=== PATIENT | female | born 1955 | race Caucasian/White ===

== ENCOUNTER 2021-07-31 15:46 | Inpatient (IN) ==
[2021-07-31] MEDS ORDERED: ONDANSETRON 4 MG OD TAB PO STA (16:01)
[2021-07-31] MEDS ORDERED: MoRPHine SULFATE 4 MG/ML 1 ML CARP\\VIAL IM STA (16:01)
--- NOTE | 2021-07-31 16:06 | Emergency Department Note ---
History of Present Illness General Chief complaint: Hip Pain Stated complaint: FALL, LT HIP PAIN Time Seen by Provider: 07/31/21 15:53 History of Present Illness Maximum Pain Intensity: 8 65-year-old female who presents to the emergency department with her friend for evaluation of injuries after she slipped on ice and fell this morning. The patient reports that she was able to get back into her home, with noticeable pain with weightbearing. The patient reports pain radiating from her buttock, around the left side of the hip to the groin region. It also slightly radiates into the thigh. She denies any paresthesias or numbness of the left lower extremity, and also denies any focal discomfort through the lower back. The patient has had difficulty with ambulation, rating her discomfort an 8 out of 10. Home Medications Medication Instructions Recorded Confirmed Type cyclosporine 0.05 % eye drops 1 drops OPB Q12H 11/16/19 07/31/21 History (Restasis MultiDose) meloxicam 15 mg tablet 15 mg PO DAILY PRN 07/31/21 07/31/21 History Allergies Allergy/AdvReac Type Severity Reaction Status Date / Time No Known Allergies Allergy Unverified 07/31/21 17:50 Past Med/Surg History Medical History Basal cell carcinoma nose, 2006 Dry eye Hip pain, left Lyme disease h/o - treated Osteoarthritis Surgical History History of left knee replacement 2014 History of right knee joint replacement 2014 History of tonsillectomy Hx of LASIK S/P D&C (status post dilation and curettage) 1988 S/P hysterectomy 2004 S/P tubal ligation 2000 Status post Mohs surgery 2006 Family History Uncle Myocardial infarction Cancer of neck Other No family history of adverse response to anesthesia Denies family history of Ovarian cancer Prostate cancer Breast cancer Colorectal cancer Social History Smoking Status: Never smoker Second Hand Exposure: No; Do You Dip or Chew Tobacco: No; Tobacco Cessation Education Requested by Patient: No Hx Alcohol Use: No Hx Substance Use: No Preferred Language: Lebanese Communication Ability: Effective Visual Impairment: No Limitations Hearing Ability: Normal Outboard Motor Mechanic Required: No Beliefs That Will Affect Care: None marital status: / Current Living Situation: Alone current occupational status: retired Other Information That Helps Us Care for You: No Feels Safe at Home: Yes Safety Concerns: Feels Safe At This Time during the past year weight has: remained stable Dental Care, Regularly: Yes Physical Activity Frequency: 5-6 Times per Week Seatbelt Use: always Sunscreen Use: Yes Assistive Devices: None Review of Systems 10 system review was performed and was negative except for pertinent positives and negatives as indicated in history of present illness Physical Exam Vital Signs Vital Signs - 24 hr 07/31/21 15:49 07/31/21 18:00 Temperature 37.8 C H Temperature Source Temporal Artery Scan Pulse Rate 108 H Pulse Rate [Right] 82 Pulse Rhythm Regular Pulse Rhythm [Right] Regular Pulse Strength Normal Pulse Strength [Right] Normal Respiratory Rate 20 18 Respiratory Effort / Characteristics Non-Labored Spontaneous Non-Labored Spontaneous Respiratory Depth Normal Normal Respiratory Pattern Regular Blood Pressure 168/89 H Blood Pressure [Right Arm] 120/65 Blood Pressure Mean 115 Blood Pressure Mean [Right Arm] 83 Blood Pressure Position Sitting Blood Pressure Position [Right Arm] Lying Pulse Oximetry 96 95 Oxygen Delivery Method Room Air Room Air Sepsis Recent Fever Within 48 Hours No Sepsis New/Unexplained Change in Mental Status No Sepsis Action Taken by Nursing No Action Required CONSTITUTIONAL: Healthy and well nourished. Alert and oriented X 3. Patient appears in moderate discomfort, and was slowly ambulating from triage to the D pod waiting room. HEENT: Normocephalic, atraumatic. Pupils equal, round and reactive. NECK: Full active range of motion without discomfort. RESPIRATORY: Clear to auscultation bilaterally with no wheezing, crackles, rhonchi or stridor. CARDIOVASCULAR: Regular rate and rhythm with no murmurs, rubs or gallops. GASTROINTESTINAL: Bowel sounds present in all quadrants. MUSCULOSKELETAL: Full range of motion of all joints without discomfort. Examination does not show any focal tenderness to palpation through the lower lumbar spine. Thorough examination of the hip could not be performed in the depart waiting room as the patient was unable to sit on a chair. She has no tenderness to palpation about the left knee. Distal pulses are intact. INTEGUMENTARY: No rash or other significant dermatologic conditions noted. HEMATOLOGIC: No ecchymosis or petechiae. PSYCHIATRIC: Positive affect. NEUROLOGIC: Left leg is sensory intact. Course Course Patient history and physical exam were performed. Nurses notes were reviewed. Vital signs were reviewed, showing an elevated blood pressure 168/89. The patient is also mildly tachycardic and febrile with a temperature of 37.8 C. The patient was administered IM morphine and Zofran ODT for pain. X-rays of the pelvis with left hip is most suggestive of an impacted femoral neck fracture. X-rays were reviewed with several colleagues and my attending physician, Dr. Thomas. Radiologist report was not indicative of fracture. Consultation was placed with Dr. Salgado regarding injuries and x-ray findings. With high suspicion for fracture, [facility]. Additional preoperative labs were ordered, reviewed and were grossly normal other than a mild leukocytosis Portable chest x-ray did not show any concerning intrathoracic findings. ECG was performed, showing a sinus rhythm with APCs and nonspecific ST abnormalities in lateral leads. COVID-19 test was also negative. It is noted that Dr. Salgado did order an MRI of the hip, confirming a subcapital hip fracture. I did order some IV Ativan as the patient was unable to undergo initial MRI imaging with anxiety. Administered Medications Morphine Sulfate (Morphine Sulfate 4 Mg/Ml 1 Ml Carp\Vial) 4 mg IV Q3H PRN PRN Reason: Pain (6,7,8,9,10) Stop: 08/14/21 22:24 Last Admin: 07/31/21 22:42 Dose: 4 mg Documented by: [id number] Discontinued Medications Lorazepam (Ativan) 1 mg in 2 mls @ 2 mls/min IV NOW STA Stop: 07/31/21 20:07 Last Admin: 07/31/21 20:20 Dose: 2 mls/min Documented by: [id number] Morphine Sulfate (Morphine Sulfate 4 Mg/Ml 1 Ml Carp\Vial) 4 mg IM NOW STA Stop: 07/31/21 16:02 Last Admin: 07/31/21 16:14 Dose: 4 mg Documented by: [id number] Morphine Sulfate (Morphine Sulfate 4 Mg/Ml 1 Ml Carp\Vial) 4 mg IV NOW STA Stop: 07/31/21 17:01 Last Admin: 07/31/21 17:18 Dose: 4 mg Documented by: [id number] Ondansetron HCl (Ondansetron 4 Mg Od Tab) 4 mg PO NOW STA Stop: 07/31/21 16:02 Last Admin: 07/31/21 16:14 Dose: 4 mg Documented by: [id number] Medical Decision Making Medical Records Attestation: I reviewed the patient's medical records. Home Medications Current Medication List: was personally reviewed by me Laboratory Data Attestation: I reviewed the patient's lab results. Result diagrams: 07/31/21 17:12 07/31/21 17:12 Lab Results 07/31/21 07/31/21 07/31/21 Range/Units 17:12 17:12 17:12 WBC 12.60 H (4.8-10.8) K/uL RBC 4.87 (4.2-5.4) M/uL Hgb 14.2 (12.0-16.0) g/dL Hct 41.2 (37-47) % MCV 84.6 (80-100) fL MCH 29.2 (25-34) pg MCHC 34.5 (32-36) g/dL RDW Std Deviation 41.2 (36.4-46.3) fL RDW Coeff of John 13.3 (11.5-14.5) % Plt Count 313 (130-400) K/uL MPV 9.8 (7.4-10.4) fL Immature Gran % (Auto) 0.2 % Neut % (Auto) 79.5 % Lymph % (Auto) 14.7 % [place] % (Auto) 5.2 % Eos % (Auto) 0.2 % Baso % (Auto) 0.2 % Neut # (Auto) 10.03 H (1.4-6.5) K/uL Lymph # (Auto) 1.85 (1.2-3.4) K/uL [place] # (Auto) 0.66 H (0.11-0.59) K/uL Eos # (Auto) 0.02 (0-0.5) K/uL Baso # (Auto) 0.02 (0-0.2) K/uL Immature Gran # (Auto) 0.02 (0.00-0.02) K/uL PT 10.2 (9.0-12.0) Seconds INR 1.0 (0.9-1.1) APTT 25.6 (21.0-31.0) Seconds PTT Ratio 1.0 Sodium 138 (136-145) mmol/L Potassium 4.0 (3.5-5.1) mmol/L Chloride 105 (98-107) mmol/L Carbon Dioxide 25 (21-32) mmol/L Anion Gap 8 (3-11) BUN 8 (6-23) mg/dl Creatinine 0.74 (0.6-1.2) mg/dl Est Cr Clr Drug Dosing Not Reportable Est GFR ( Amer) 99.9 ml/min Est GFR (Non-Af Amer) 86.2 ml/min BUN/Creatinine Ratio 10.8 (10-20) Glucose 106 H (70-99(Fasting)) mg/dl Calcium 9.3 (8.5-10.1) mg/dl Total Bilirubin 0.7 (0.2-1.0) mg/dl AST 21 (13-39) U/L ALT 16 (7-52) U/L Alkaline Phosphatase 50 (34-104) U/L Total Protein 7.1 (6.0-8.3) gm/dl Albumin 4.5 (3.4-5.0) gm/dl Globulin 2.6 (2.5-4.0) gm/dl Albumin/Globulin Ratio 1.7 (0.9-2) Urine Color Urine Appearance (Clear) Urine pH (4.5-7.5) Ur Specific [place] (1.000-1.030) Urine Protein (Negative) Urine Glucose (UA) (Negative) Urine Ketones (Negative) Urine Blood (Negative) Urine Nitrite (Negative) Urine Bilirubin (Negative) Urine Urobilinogen (Negative) Ur Leukocyte Esterase (Negative) SARS-CoV-2, RNA, NAAT (NEGATIVE) 07/31/21 07/31/21 Range/Units 18:15 18:15 WBC (4.8-10.8) K/uL RBC (4.2-5.4) M/uL Hgb (12.0-16.0) g/dL Hct (37-47) % MCV (80-100) fL MCH (25-34) pg MCHC (32-36) g/dL RDW Std Deviation (36.4-46.3) fL RDW Coeff of John (11.5-14.5) % Plt Count (130-400) K/uL MPV (7.4-10.4) fL Immature Gran % (Auto) % Neut % (Auto) % Lymph % (Auto) % [place] % (Auto) % Eos % (Auto) % Baso % (Auto) % Neut # (Auto) (1.4-6.5) K/uL Lymph # (Auto) (1.2-3.4) K/uL [place] # (Auto) (0.11-0.59) K/uL Eos # (Auto) (0-0.5) K/uL Baso # (Auto) (0-0.2) K/uL Immature Gran # (Auto) (0.00-0.02) K/uL PT (9.0-12.0) Seconds INR (0.9-1.1) APTT (21.0-31.0) Seconds PTT Ratio Sodium (136-145) mmol/L Potassium (3.5-5.1) mmol/L Chloride (98-107) mmol/L Carbon Dioxide (21-32) mmol/L Anion Gap (3-11) BUN (6-23) mg/dl Creatinine (0.6-1.2) mg/dl Est Cr Clr Drug Dosing Est GFR ( Amer) ml/min Est GFR (Non-Af Amer) ml/min BUN/Creatinine Ratio (10-20) Glucose (70-99(Fasting)) mg/dl Calcium (8.5-10.1) mg/dl Total Bilirubin (0.2-1.0) mg/dl AST (13-39) U/L ALT (7-52) U/L Alkaline Phosphatase (34-104) U/L Total Protein (6.0-8.3) gm/dl Albumin (3.4-5.0) gm/dl Globulin (2.5-4.0) gm/dl Albumin/Globulin Ratio (0.9-2) Urine Color Yellow Urine Appearance Clear (Clear) Urine pH 6.5 (4.5-7.5) Ur Specific [place] 1.004 (1.000-1.030) Urine Protein Negative (Negative) Urine Glucose (UA) Negative (Negative) Urine Ketones Negative (Negative) Urine Blood Negative (Negative) Urine Nitrite Negative (Negative) Urine Bilirubin Negative (Negative) Urine Urobilinogen Negative (Negative) Ur Leukocyte Esterase Negative (Negative) SARS-CoV-2, RNA, NAAT NEGATIVE (NEGATIVE) Imaging Data Attestation: I personally reviewed and interpreted this imaging study as follows: My Impression: My interpretation of pelvis with a left hip x-ray shows an impacted femoral neck fracture. There is a discrepancy with the radiologist report. My interpretation of the portable chest x-ray does not show any consolidations or pneumothorax. A noncontrast MRI of the left hip confirms a subcapital hip fracture. Radiologist reports were also reviewed. Radiologist's Impression: Hip/Pelvis X-Ray 07/31/21 16:01 XR hip LT 2V w pelvis CLINICAL HISTORY: L hip injury from fall TECHNIQUE: 2 views of the left hip and single frontal view of the pelvis were obtained. Comparison: None available at the time of this dictation. FINDINGS: There is no evidence of an acute fracture. The alignment is anatomic. Degenerative changes are seen in the hip joint. No soft tissue abnormality is seen. IMPRESSION: Degenerative changes without evidence of acute abnormality. ACT 112: Negative or not required by law. Electronically signed by: Regulo Santillan M.D. 07/31/2021 5:06 PM Chest X-Ray 07/31/21 16:39 XR chest 1V portable CLINICAL HISTORY: Hip fracture TECHNIQUE: Single frontal radiograph of the chest was obtained. Comparison: Comparison is made to chest 2 views 11/13/2014 FINDINGS: No lines and tubes are seen. The cardiomediastinal silhouette is normal. The lungs are clear. No evidence of pleural effusion or pneumothorax. IMPRESSION: No acute chest disease. ACT 112: Negative or not required by law. Electronically signed by: Regulo Santillan M.D. 07/31/2021 5:06 PM ECG Data Attestation: I personally reviewed and interpreted this ECG as follows: Indication: + other (Preoperative ECG) Rhythm: + normal sinus ECG [place]: + Normal ECG ST segments: + ST depression (Lateral leads) ECG Findings: + PVCs Comparison ECG Date: from (11/13/2014) Change: the following changes noted (New PVCs) Blood Pressure Blood Pressure Findings: Normal blood pressure MDM Narrative Patient presents to the emergency department for evaluation of injuries after a mechanical fall from slipping on ice. X-rays and MRI imaging of the left hip confirms a subcapital hip fracture. No other fractures are noted within the pelvis on x-ray. Denies any other injuries to warrant further trauma work-up. Impression & Plan Subcapital fracture of left hip, Fall due to slipping on ice or snow Discharge Plan Visit Data Chief Complaint: Hip Pain Stated Complaint: FALL, LT HIP PAIN ED Provider: Nelson Thomas ED Midlevel Provider: Vu Polanco Discharge Problem: Subcapital fracture of left hip, Fall due to slipping on ice or snow Patient Disposition: Admitted As Inpatient Discharge Instructions Interventions: ED Discharge Assessment Last Done: 07/31/21 21:51 Discharge Problem: Subcapital fracture of left hip Qualifiers: Encounter type: initial encounter Fracture type: closed Qualified Code(s): S72.012A - Unspecified intracapsular fracture of left femur, initial encounter for closed fracture Fall due to slipping on ice or snow Qualifiers: Encounter type: initial encounter Qualified Code(s): W00.9XXA - Unspecified fall due to ice and snow, initial encounter
[2021-07-31] MEDS ORDERED: MoRPHine SULFATE 4 MG/ML 1 ML CARP\\VIAL IV STA (17:00)
--- NOTE | 2021-07-31 17:07 | XRay Report ---
XR hip LT 2V w pelvis CLINICAL HISTORY: L hip injury from fall TECHNIQUE: 2 views of the left hip and single frontal view of the pelvis were obtained. Comparison: None available at the time of this dictation. FINDINGS: There is no evidence of an acute fracture. The alignment is anatomic. Degenerative changes are seen i n the hip joint. No soft tissue abnormality is seen. IMPRESSION: Degenerative changes without evidence of acute abnormality. ACT 112: Negative or not required by law. Electronically signed by: Regulo Santillan M.D. 07/31/2021 5:06 PM
--- NOTE | 2021-07-31 17:08 | XRay Report ---
XR chest 1V portable CLINICAL HISTORY: Hip fracture TECHNIQUE: Single frontal radiograph of the chest was obtained. Comparison: Comparison is made to chest 2 views 11/13/2014 FINDINGS: No lines and tubes are seen. The cardiomediastinal silhouette is normal. The lungs are clear. No evid ence of pleural effusion or pneumothorax. IMPRESSION: No acute chest disease. ACT 112: Negative or not required by law. Electronically signed by: Regulo Santillan M.D. 07/31/2021 5:06 PM
[2021-07-31 17:34] LABS: Basophils # (auto) 0.02 K/uL (0-0.2); Basophils % (auto) 0.2 %; Eosinophils # (auto) 0.02 K/uL (0-0.5); Eosinophils % (auto) 0.2 %; Hematocrit (blood only) 41.2 % (37-47); Hemoglobin 14.2 g/dL (12.0-16.0); Immature Granulocytes # (auto) 0.02 K/uL (0.00-0.02); Immature Granulocytes % (auto) 0.2 %; Lymphocytes # (auto) 1.85 K/uL (1.2-3.4); Lymphocytes % (auto) 14.7 %; Mean Corpuscular Hemoglobin 29.2 pg (25-34); Mean Corpuscular Hgb Conc 34.5 g/dL (32-36); Mean Corpuscular Volume 84.6 fL (80-100); Mean Platelet Volume 9.8 fL (7.4-10.4); Monocytes # (auto) 0.66 K/uL (0.11-0.59); Monocytes % (auto) 5.2 %; Neutrophils # (auto) 10.03 K/uL (1.4-6.5); Neutrophils % (auto) 79.5 %; Platelet Count 313 K/uL (130-400); RDW Coefficient of Variation 13.3 % (11.5-14.5); RDW Standard Deviation 41.2 fL (36.4-46.3); Red Blood Count 4.87 M/uL (4.2-5.4)
[2021-07-31 17:45] LABS: Partial Thromboplastin Time 25.6 Seconds (21.0-31.0); Prothrombin Time 10.2 Seconds (9.0-12.0)
--- NOTE | 2021-07-31 17:47 | History & Physical Report ---
Date of Service July 31, 2021 Assessment & Plan (1) Hip pain, left: Plan: -Mechanical fall without LOC, patient is HD stable. -L hip/pelvis x-ray read as no acute fracture--> MRI ordered by orthopedics to r/o suspected femoral neck fracture. There is an impacted and minimally displaced subcapital fracture of the left proximal femur with corresponding marrow edema. There is mild surrounding hemorrhage and associated left hip joint effusion/lipohemarthrosis. -Orthopedics consulted, appreciate their recommendations. -Pain management with PRN morphine. -Zofran prn. -Regular diet now. -RCRI 0, 3.9% 30 day risk of , [place], or cardiac arrest. (2) Leukocytosis: Plan: -WBC 12.6 with neut # 10.03 -Without complaints of fever/chills, cough, SOB, abdominal pain, n/v/d, urinary symptoms. No obvious source of infection. CXR and UA wnl. -Continue to monitor, repeat CBC in AM. Plan: -Admit inpatient. -Full code. -SCDs ordered. History of Present Illness Chief Complaint: Left hip pain Primary Care Provider: Amada Smith DO Patient is a 65-year-old female with past medical history of bilateral knee replacement who presents today with left hip pain after a mechanical fall this morning. Patient states she slipped on ice around 8 AM and landed on her left hip. She was able to get up and ambulate back into her home where she continued to ambulate with moderate pain, not requiring any pain medications at time. As the day went on, ambulation became more painful and she decided to come to the ED for further evaluation. Patient reporting left hip pain on the lateral aspect with some radiation down her lateral thigh, sometimes the pain is on her anterior thigh with radiation down to the knee, feels slightly spasmodic and throbbing in nature, but not burning or stabbing. No numbness or tingling, sensation intact. She denies any other injuries sustained in the fall, did not hit her head, neck, back, or any other parts of the body. Denies loss of consciousness, confusion, nausea, vomiting, headache. Only home medication is eyedrops and prn mobic for osteoarthritic joint pain, is not on any blood thinners. L hip and pelvis x-ray revealed no evidence of acute fracture. Alignment is anatomic. Degenerative changes seen at the hip joint. No soft tissue abnormalities seen. Hip MRI ordered. CXR performed, no acute chest disease seen. BP elevated at 168/89, heart rate 108, 96% RA, temp is 37.8. Significant for elevated WBC at 12.6, neutrophil count 10, otherwise unremarkable. Coag panel within normal limits. CMP and UA wnl. Orthopedics has been consulted, hospitalist service consulted for admission. Allergies Allergy/AdvReac Type Severity Reaction Status Date / Time No Known Allergies Allergy Unverified 07/31/21 17:50 Home Medications Medication Instructions Recorded Confirmed Type cyclosporine 0.05 % eye drops 1 drops OPB Q12H 11/16/19 07/31/21 History (Restasis MultiDose) meloxicam 15 mg tablet 15 mg PO DAILY PRN 07/31/21 07/31/21 History Past Med/Surg History Medical History Basal cell carcinoma nose, 2006 Dry eye Hip pain, left Lyme disease h/o - treated Osteoarthritis Surgical History History of left knee replacement 2014 History of right knee joint replacement 2014 History of tonsillectomy Hx of LASIK S/P D&C (status post dilation and curettage) 1987 S/P hysterectomy 2004 S/P tubal ligation 2000 Status post Mohs surgery 2006 Family History Uncle Myocardial infarction Cancer of neck Other No family history of adverse response to anesthesia Denies family history of Ovarian cancer Prostate cancer Breast cancer Colorectal cancer Social History Smoking Status: Never smoker Second Hand Exposure: No; Do You Dip or Chew Tobacco: No; Tobacco Cessation Education Requested by Patient: No Hx Alcohol Use: No Hx Substance Use: No Preferred Language: Telugu Communication Ability: Effective Visual Impairment: No Limitations Hearing Ability: Normal Claims Director Required: No Beliefs That Will Affect Care: None marital status: / Current Living Situation: Alone current occupational status: retired Other Information That Helps Us Care for You: No Feels Safe at Home: Yes Safety Concerns: Feels Safe At This Time during the past year weight has: remained stable Dental Care, Regularly: Yes Physical Activity Frequency: 5-6 Times per Week Seatbelt Use: always Sunscreen Use: Yes Assistive Devices: Walker Review of Systems Review of Systems: Constitutional: No fever, sweats or chills Eyes: No diplopia, no worsening or blurred vision ENT: normal hearing, no trouble swallowing Respiratory: No cough, sputum, dyspnea at rest or on exertion Cardiovascular: No chest pain, tightness or palpitations Abdomen: No pain, nausea, vomiting, diarrhea or constipation Musculoskeletal: Endorses left lateral and anterior hip pain with radiation midway down thigh Neurologic: No weakness, numbness/tingling, or balance problems Psychiatric: No anxiety or depression Skin: No rash or itch Physical Exam Physical Exam: General: awake, alert, no apparent distress Head: Normocephalic, atraumatic ENT: PERRL, EOMI, no pharyngeal exudate, mucous membranes moist Chest: Clear to auscultation, on room air, no adventitious breath sounds Cardiac: Regular rate and rhythm, no murmur, no JVD, normal peripheral pulses, good capillary refill Abdominal: NABS x 4 quadrants, soft, nontender to palpation, no rebound, guarding or tenderness Extremities: LLE--> tender to palpation at the lateral hip joint, passive range of motion limited due to pain; pulses intact bilaterally, sensation intact bilaterally, equal; no internal or external rotation of the left hip; no peripheral edema or erythema, calfs nontender to palpation Psych: Normal mood and affect Neuro: AAO x 3, strength intact bilaterally and rated 5/5, no motor deficits, speech is clear, no peripheral sensory deficits Skin: no rash or erythema Results & Data Results & Data ([facility]) Vital Signs (Past 12 Hours) Vital Signs Temp Pulse Resp BP Pulse Ox 07/31/21 15:49 37.8 C H 108 H 20 168/89 H 96 Laboratory Results Abnormal lab results 07/31/21 07/31/21 Range/Units 17:12 17:12 WBC 12.60 H (4.8-10.8) K/uL Neut # (Auto) 10.03 H (1.4-6.5) K/uL [place] # (Auto) 0.66 H (0.11-0.59) K/uL Glucose 106 H (70-99(Fasting)) mg/dl Diagnostic Findings Hip/Pelvis X-Ray 07/31/21 16:01 XR hip LT 2V w pelvis CLINICAL HISTORY: L hip injury from fall TECHNIQUE: 2 views of the left hip and single frontal view of the pelvis were obtained. Comparison: None available at the time of this dictation. FINDINGS: There is no evidence of an acute fracture. The alignment is anatomic. Degenerative changes are seen in the hip joint. No soft tissue abnormality is seen. IMPRESSION: Degenerative changes without evidence of acute abnormality. ACT 112: Negative or not required by law. Electronically signed by: Regulo Santillan M.D. 07/31/2021 5:06 PM Chest X-Ray 07/31/21 16:39 XR chest 1V portable CLINICAL HISTORY: Hip fracture TECHNIQUE: Single frontal radiograph of the chest was obtained. Comparison: Comparison is made to chest 2 views 11/13/2014 FINDINGS: No lines and tubes are seen. The cardiomediastinal silhouette is normal. The lungs are clear. No evidence of pleural effusion or pneumothorax. IMPRESSION: No acute chest disease. Code Status & VTE Plan Code Status Full code. VTE Prophylaxis Plan VTE Prophylaxis will be ordered: Yes Supervising Physician Co-Signing Physician Notes I have personally evaluated and examined this patient. I agree with assessment and plan of Dex Vu PA-C. PG Care Time/CCT Total # of Minutes Spent Total Time Spent with Patient: Total time spent is greater than 50% in coordination of care (as documented) at patient's floor/unit and/or counseling patient: Coding Level of Care Code 31817 Initial Inpt Care Lvl 2 Diagnoses Leukocytosis D72.829 Hip pain, left M25.552
[2021-07-31 17:56] LABS: Alanine Aminotransferase 16 U/L (7-52); Albumin Globulin Ratio 1.7 (0.9-2); Albumin Level 4.5 gm/dl (3.4-5.0); Alkaline Phosphatase 50 U/L (34-104); Anion Gap 8 (3-11); Aspartate Aminotransferase 21 U/L (13-39); BUN Creatinine Ratio 10.8 (10-20); Bilirubin,Total 0.7 mg/dl (0.2-1.0); Blood Urea Nitrogen 8 mg/dl (6-23); Calcium 9.3 mg/dl (8.5-10.1); Carbon Dioxide 25 mmol/L (21-32); Chloride 105 mmol/L (98-107); Est GFR (African American) 99.9 ml/min; Est GFR (Non-African American) 86.2 ml/min; Globulin 2.6 gm/dl (2.5-4.0); Glucose 106 mg/dl (70-99(Fasting)); Sodium 138 mmol/L (136-145); Total Protein 7.1 gm/dl (6.0-8.3)
[2021-07-31 18:31] LABS: Appearance Urine Clear (Clear); Bilirubin Urine Negative (Negative); Blood Urine Negative (Negative); Color Urine Yellow; Glucose Urine UA Negative (Negative); Ketones Urine Negative (Negative); Leukocyte Esterase Urine Negative (Negative); Nitrite Urine Negative (Negative); Protein Urine Negative (Negative); Specific Gravity Urine 1.004 (1.000-1.030); Urobilinogen Urine Negative (Negative); pH Urine 6.5 (4.5-7.5)
[2021-07-31] MEDS ORDERED: LORazepam 1 MG/2 ML VIAL IV STA (20:06)
--- NOTE | 2021-07-31 20:55 | Magnetic Resonance Report ---
MRI OF THE LEFT HIP WITHOUT IV CONTRAST CLINICAL HISTORY: Fall with left hip pain. COMPARISON STUDY: Radiographs of the left hip dated 07/31/2021. TECHNIQUE: MRI of the left hip is performed utilizing various T1 and T2-weighted sequences in the axi al, sagittal, and coronal planes. IV contrast was not administered for this examination. FINDINGS: There is an impacted and minimally displaced subcapital fracture of the left proximal femur with corresponding marrow edema. There is mild surrounding hemorrhage and associated left hip joint effusion/lipohemarthrosis. No additional fracture is identified involving the right hip or the visual ized pelvis. Moderate to advanced osteoarthritic change is noted in both hips. Mild degenerative aguirre ge is noted in the sacroiliac joints. Lumbosacral spondylosis is partially visualized. No destructive bony lesion is seen. There is generalized atrophy of the regional musculature. The origin of the ham strings tendons appear intact. The bladder is decompressed around a [place] catheter. The uterus is susana gically absent. No adnexal lesion is seen. There is no free fluid in the pelvis. No pelvic sidewall o r inguinal adenopathy is seen. IMPRESSION: Impacted subcapital fracture of the left femur as above. Electronically signed by: Song Spear M.D. 07/31/2021 8:53 PM
[2021-07-31] MEDS ORDERED: ACETAMINOPHEN 325 MG TAB PO PRN (22:25)
[2021-07-31] MEDS ORDERED: POLYETHYLENE (MIRALAX) 17 GM PACK PO PRN (22:25)
[2021-07-31] MEDS ORDERED: NALOXONE HCL 0.4 MG/1 ML VIAL/CARP IV PRN (22:25)
[2021-07-31] MEDS ORDERED: ONDANSETRON INJ 2 MG/ML 2 ML VIAL IV PRN (22:25)
[2021-07-31] MEDS ORDERED: MoRPHine SULFATE 2 MG/ML CARP IV PRN (22:25)
[2021-07-31] MEDS: MoRPHine SULFATE 4 MG/ML 1 ML CARP\\VIAL IV PRN (22:42)
--- NOTE | 2021-07-31 23:50 | Orthopedic Consultation ---
Date of Service July 31, 2021 Assessment & Plan (1) Subcapital fracture of left hip: 65-year-old female with some arthrosis and a new subcapital femoral neck fracture with impaction in the left hip. This will need surgical stabilization and consideration of a total hip replacement. We will defer surgical decision to partners due to hip arthroplasty. They will evaluate today for percutaneous screw fixation or total hip arthroplasty. She is on the OR schedule today. Please keep her n.p.o. History of Present Illness Reason for Consultation: left hip pain after fall Requesting Physician: . Attending Physician: Rudi Lozoya MD 65-year-old pleasant and active female with a history of bilateral knee replacements sustained fall yesterday onto her left hip. She is on immediate pain and progressive difficulty weightbearing. She went to the emergency room for evaluation. Allergies Allergy/AdvReac Type Severity Reaction Status Date / Time No Known Allergies Allergy Unverified 07/31/21 17:50 Home Medications Medication Instructions Recorded Confirmed Type cyclosporine 0.05 % eye drops 1 drops OPB Q12H 11/16/19 07/31/21 History (Restasis MultiDose) meloxicam 15 mg tablet 15 mg PO DAILY PRN 07/31/21 07/31/21 History Past Med/Surg History Medical History Basal cell carcinoma nose, 2006 Dry eye Hip pain, left Lyme disease h/o - treated Osteoarthritis Surgical History History of left knee replacement 2014 History of right knee joint replacement 2014 History of tonsillectomy Hx of LASIK S/P D&C (status post dilation and curettage) 1987 S/P hysterectomy 2004 S/P tubal ligation 2000 Status post Mohs surgery 2005 Family History Uncle Myocardial infarction Cancer of neck Other No family history of adverse response to anesthesia Denies family history of Ovarian cancer Prostate cancer Breast cancer Colorectal cancer Social History Smoking Status: Never smoker Second Hand Exposure: No; Do You Dip or Chew Tobacco: No; Tobacco Cessation Education Requested by Patient: No Hx Alcohol Use: No Hx Substance Use: No Preferred Language: Citizen Of [place] Communication Ability: Effective Visual Impairment: No Limitations Hearing Ability: Normal Finance Lecturer Required: No Beliefs That Will Affect Care: None marital status: / Current Living Situation: Alone current occupational status: retired Other Information That Helps Us Care for You: No Feels Safe at Home: Yes Safety Concerns: Feels Safe At This Time during the past year weight has: remained stable Dental Care, Regularly: Yes Physical Activity Frequency: 5-6 Times per Week Seatbelt Use: always Sunscreen Use: Yes Assistive Devices: None Review of Systems All systems reviewed & are unremarkable except as noted in HPI & below. Physical Exam Left hip: She is lying comfortably with a pillow under both knees. She directs that the pain is medial and lateral. She is irritable with logroll. Constitutional well developed and well nourished; no acute distress and not intoxicated appearing Respiratory normal respiratory effort; no respiratory distress Cardiovascular Extremities: normal capillary refill; no edema Skin no rashes, warm and dry Psychiatric A+Ox3, euthymic affect Results & Data Results & Data Laboratory Results . Diagnostic Findings Radiographs and advanced imaging with MRI confirmed that there is a impacted femoral neck fracture. There is some arthrosis in the joint. I will defer these images to my partners to perform hip replacement surgery. PG Care Time/CCT Total # of Minutes Spent Total Time Spent with Patient: Total time spent is greater than 50% in coordination of care (as documented) at patient's floor/unit and/or counseling patient: Coding Level of Care Code 86159 Inpt Consult Level 4 Diagnoses Subcapital fracture of left hip S72.012A Encounter type: initial encounter Fracture type: closed (1) Subcapital fracture of left hip Encounter type: initial encounter Fracture type: closed Qualified Code(s): S72.012A - Unspecified intracapsular fracture of left femur, initial encounter for closed fracture
[2021-08-01] MEDS: MoRPHine SULFATE 4 MG/ML 1 ML CARP\\VIAL IV PRN ×2 (02:59→08:03)
[2021-08-01] MEDS ORDERED: MELATONIN 3 MG TAB PO PRN (08:12)
[2021-08-01] MEDS ORDERED: SODIUM CHLORIDE 0.9% 1000ML 1,000 ML IV SCH (08:25)
[2021-08-01] MEDS ORDERED: ACETAMINOPHEN 325 MG TAB PO PRN (08:25)
[2021-08-01] MEDS ORDERED: ACETAMINOPHEN 1,000 MG/100 ML VIAL IV PRN (08:25)
[2021-08-01 08:47] LABS: Basophils # (auto) 0.02 K/uL (0-0.2); Basophils % (auto) 0.3 %; Eosinophils # (auto) 0.15 K/uL (0-0.5); Eosinophils % (auto) 1.9 %; Hematocrit (blood only) 41.2 % (37-47); Immature Granulocytes # (auto) 0.01 K/uL (0.00-0.02); Immature Granulocytes % (auto) 0.1 %; Lymphocytes # (auto) 2.32 K/uL (1.2-3.4); Lymphocytes % (auto) 29.7 %; Mean Corpuscular Volume 85.5 fL (80-100); Mean Platelet Volume 9.5 fL (7.4-10.4); Monocytes # (auto) 0.69 K/uL (0.11-0.59); Monocytes % (auto) 8.8 %; Neutrophils # (auto) 4.62 K/uL (1.4-6.5); Neutrophils % (auto) 59.2 %; Platelet Count 279 K/uL (130-400); RDW Coefficient of Variation 13.7 % (11.5-14.5); RDW Standard Deviation 42.7 fL (36.4-46.3); Red Blood Count 4.82 M/uL (4.2-5.4); White Blood Count 7.81 K/uL (4.8-10.8)
--- NOTE | 2021-08-01 08:47 | Hospitalist Progress Note ---
Date of Service August 01, 2021 Assessment & Plan (1) Subcapital fracture of left hip: Plan: 65-year-old female with new left subcapital femoral neck fracture with impaction in the left hip from a mechanical fall. - L hip/pelvis x-ray read as no acute fracture - L hip MRI showing an impacted and minimally displaced subcapital fracture of the left proximal femur with corresponding marrow edema - Orthopedics consult --> patient taken to OR by Dr. Dela Cruz for left total hip arthroplasty - Pain management with PRN Tylenol (mild to moderate pain) morphine (severe pain) - will check vitamin D level given new fracture - Recommend DEXA scan as outpatient. Leukocytosis: - WBC 12.6 on admission - CXR and UA normal. No evidence of cellulitis on exam or diarrhea per history - covid 19 negative on admission - Continue to monitor, repeat CBC in AM. Diet: NPO until procedure with mIVF DVT ppx: per orthopedic surgery Code: Full Dispo: Med/surg Admission and Anticipated Discharge Date Admission Date: July 31, 2021 Supervising Physician Co-Signing Physician Notes I personally examined the patient and verified all zamudio points of history and exam, discussed case, and agree with decision making with Dr Hurley feeling OK post op pain ok breathign ok vitals noted nad heent nc at mmm breathing unlabored no accessory muscles good effot skin no rashes no pallor or ictersu neuro no focal deficits hip fx -post op -pain controlled -PT/OT -outpt bone FIELDS [place] w/u DVT proph - asa bid Subjective no acute events overnight. Doing well, pain well controlled with morphine. Review of Systems Review of Systems: All systems reviewed & are unremarkable except as noted in HPI & below Physical Exam Constitutional: WD/WN, vitals as above no acute distress Eyes: + anicteric sclerae ENMT: external ear and nose normal, oropharynx normal Neck: trachea midline Respiratory: normal respiratory effort, lungs clear to auscultation Cardiovascular: RRR, no murmur, no edema Heart Sounds: normal S1 and normal S2 Gastrointestinal (Abdomen): normal bowel sounds, soft, nontender, no hepatosplenomegaly Musculoskeletal: Head/Neck/Chest: normocephalic and head atraumatic Hip: + joint line tenderness (left hip) left lower extremity is neurovascularly intact Skin: no rashes, warm and dry Neurologic: moves all extremities Psychiatric: A+Ox3, euthymic affect Results & Data Results & Data ([facility]) Vital Signs (Past 12 Hours) Vital Signs Temp Pulse Resp BP Pulse Ox 08/01/21 07:20 36.8 C 74 14 111/74 94 07/31/21 22:00 36.9 C 85 18 118/76 94 07/31/21 21:27 88 18 113/78 95 Resident Activity Tracking Resident Involvement: Resident Care Provided Care Provided: Adult Hospital Medicine (1) Subcapital fracture of left hip Encounter type: initial encounter Fracture type: closed Qualified Code(s): S72.012A - Unspecified intracapsular fracture of left femur, initial encounter for closed fracture
[2021-08-01 09:17] LABS: BUN Creatinine Ratio 11.8 (10-20); Calcium 9.1 mg/dl (8.5-10.1); Creatinine Clr Calc Pharmacy 68.2 ml/min; Est GFR (African American) 96.8 ml/min; Est GFR (Non-African American) 83.5 ml/min; Potassium 3.8 mmol/L (3.5-5.1)
--- NOTE | 2021-08-01 10:27 | Orthopedic Consultation ---
Date of Service August 01, 2021 Assessment & Plan (1) Subcapital fracture of left hip: Time was spent with her at bedside describing the diagnosis and possible treatment options. At this point, given her arthritis, I recommended a left total hip arthroplasty. She understands the risk benefits alternatives procedure elected proceed question were answered at bedside and consents were signed. Time was spent scribed procedure and postop expectations. She is currently n.p.o. We will proceed with the procedure later this afternoon. History of Present Illness Reason for Consultation: Left femoral neck fracture Requesting Physician: . Attending Physician: Paco Ames DO Marshall is a pleasant 65-year-old female who slipped on the black ice yesterday. She fell onto her left hip. She was having significant left hip pain. She came to the emergency room and radiographs demonstrated a valgus impacted left femoral neck fracture. She also has advanced arthritis of her left hip. She has seen surgeons before about possible hip replacement but has not gone through with it to this point. She has been living with chronic hip pain. She was admitted to the hospital for the left hip fracture. Orthopedics was consulted to evaluate and treat. Allergies Allergy/AdvReac Type Severity Reaction Status Date / Time No Known Allergies Allergy Unverified 07/31/21 17:50 Home Medications Medication Instructions Recorded Confirmed Type cyclosporine 0.05 % eye drops 1 drops OPB Q12H 11/16/19 07/31/21 History (Restasis MultiDose) meloxicam 15 mg tablet 15 mg PO DAILY PRN 07/31/21 07/31/21 History Past Med/Surg History Medical History Basal cell carcinoma nose, 2006 Dry eye Hip pain, left Lyme disease h/o - treated Osteoarthritis Surgical History History of left knee replacement 2014 History of right knee joint replacement 2014 History of tonsillectomy Hx of LASIK S/P D&C (status post dilation and curettage) 1988 S/P hysterectomy 2004 S/P tubal ligation 2000 Status post Mohs surgery 2006 Family History Uncle Myocardial infarction Cancer of neck Other No family history of adverse response to anesthesia Denies family history of Ovarian cancer Prostate cancer Breast cancer Colorectal cancer Social History Smoking Status: Never smoker Second Hand Exposure: No; Do You Dip or Chew Tobacco: No; Tobacco Cessation Education Requested by Patient: No Hx Alcohol Use: No Hx Substance Use: No Preferred Language: [place]ian Communication Ability: Effective Visual Impairment: No Limitations Hearing Ability: Normal Racing Car Driver Required: No Beliefs That Will Affect Care: None marital status: / Current Living Situation: Alone current occupational status: retired Other Information That Helps Us Care for You: No Feels Safe at Home: Yes Safety Concerns: Feels Safe At This Time during the past year weight has: remained stable Dental Care, Regularly: Yes Physical Activity Frequency: 5-6 Times per Week Seatbelt Use: always Sunscreen Use: Yes Assistive Devices: Walker Review of Systems All systems reviewed & are unremarkable except as noted in HPI & below. Physical Exam On physical examination of the left hip, she has pain with range of motion. Her leg lengths are essentially equal. Constitutional WD/WN, vitals as above Eyes PERRL, conjunctivae normal, anicteric sclerae ENMT external ear and nose normal, oropharynx normal Neck trachea midline, no thyromegaly Respiratory normal respiratory effort Cardiovascular RRR, no murmur, no edema Gastrointestinal (Abdomen) normal bowel sounds, soft, nontender, no hepatosplenomegaly Psychiatric A+Ox3, euthymic affect Results & Data Results & Data Laboratory Results . Diagnostic Findings X-rays of the left hip do show advanced osteoarthritis with joint space narrowing osteophyte formation and [id number] articulation. There is also valgus impacted left femoral neck fracture PG Care Time/CCT Total # of Minutes Spent Total Time Spent with Patient: Total time spent is greater than 50% in coordination of care (as documented) at patient's floor/unit and/or counseling patient: Coding Level of Care Code 70729 Inpt Consult Level 4 (57 - DECISION FOR SURGERY) Diagnoses Subcapital fracture of left hip S72.012A Encounter type: initial encounter Fracture type: closed (1) Subcapital fracture of left hip Encounter type: initial encounter Fracture type: closed Qualified Code(s): S72.012A - Unspecified intracapsular fracture of left femur, initial encounter for closed fracture
[2021-08-01] MEDS ORDERED: ePHEDrine sulfate 50 MG/ML AMP IV PRN (11:31)
[2021-08-01] MEDS ORDERED: ONDANSETRON INJ 2 MG/ML 2 ML VIAL IV PRN ×2 (11:31→15:08)
[2021-08-01] MEDS ORDERED: HYDROmorphone INJ 2 MG/ML SYR/VIAL IV PRN (11:31)
[2021-08-01] MEDS ORDERED: ATROPINE SULFATE 0.1 MG/ML 10ML SYR IV PRN (11:31)
--- NOTE | 2021-08-01 11:31 | Anesthesiology Consultation ---
Date of Service August 01, 2021 Assessment & Plan ASA ASA2 Proposed Anesthesia Anesthesia Type: General Risk / Benefits Reviewed With: PT / POA / Parent / Guardian, Accepts Plan and Informed Consent Obtained History Surgery Operation Date: 08/01/21 08:35 Proposed Procedures p Left Anterior Total Hip Arthroplasty - Salomon Dela Cruz DO Height/Weight Height: 5 ft 5 in Weight: 65 kg Allergies Allergy/AdvReac Type Severity Reaction Status Date / Time No Known Allergies Allergy Unverified 07/31/21 17:50 Medications Home Medications Medication Instructions Recorded Confirmed Last Taken cyclosporine 0.05 % eye drops 1 drops OPB Q12H 11/16/19 07/31/21 07/31/21 (Restasis MultiDose) am meloxicam 15 mg tablet 15 mg PO DAILY PRN 07/31/21 07/31/21 Unknown Active Medications Generic Name Dose Route Start Last Admin Trade Name Freq PRN Reason Stop Dose Admin Sodium Chloride 1,000 mls @ 120 mls/hr 08/01/21 08:25 08/01/21 10:57 Nss 1000ml IV 08/02/21 01:04 0 mls/hr .[id number] NICA Infusion Miscellaneous 1 ea 08/01/21 08:00 08/01/21 07:00 Cyclosporine [Restasis]: Order Awaiting Action N/A 08/31/21 07:59 Not Given QS NICA Morphine Sulfate 4 mg 07/31/21 22:25 08/01/21 08:03 Morphine Sulfate 4 Mg/Ml 1 Ml Carp\Vial IV 08/14/21 22:24 4 mg Q3H PRN Administration Pain (6,7,8,9,10) NPO Date Last Intake of Fluids: 07/31/21 Time Last Intake of Fluids: 23:00 Last Intake of Fluids Comment: 0600 sip of water Date Last Intake of Solids: 07/31/21 Time Last Intake of Solids: 23:00 Past Medical History Medical History Basal cell carcinoma nose, 2006 Dry eye Hip pain, left Lyme disease h/o - treated Osteoarthritis Exercise / Class Metabolic Activity II 4-5 Yardwork/Stairs/Walk up hill Past Family History Family History Uncle Myocardial infarction Cancer of neck Other No family history of adverse response to anesthesia Denies family history of Ovarian cancer Prostate cancer Breast cancer Colorectal cancer Past Surgical History Surgical History History of left knee replacement 2014 History of right knee joint replacement 2014 History of tonsillectomy Hx of LASIK S/P D&C (status post dilation and curettage) 1988 S/P hysterectomy 2004 S/P tubal ligation 2000 Status post Mohs surgery 2006 Past Anesthesia History No Hx of Anesthesia Complications and No Family Hx of Anesthesia Complications History of PONV No Hx of PONV and No Hx of Motion Sickness Social History Smoking Status: Never smoker Do You Dip or Chew Tobacco: No Hx Alcohol Use: No Hx Substance Use: No substance use type: does not use Review of Systems denies fever/cough/ colds/ chest pain/ SOB/ GUANACO denies GUANACO Physical Exam Vital Signs Last Vital Signs Temp 37 C 08/01/21 11:23 Pulse 78 08/01/21 11:23 Resp 20 08/01/21 11:23 BP 116/65 08/01/21 11:23 Pulse Ox 93 08/01/21 11:23 ENMT Mouth: no TMJ abnormality and no dentition abnormality Thyromental Distance: > or= 3.5 Finger Breadths Mallampati Class: II Neck neck extension not limited Respiratory normal respiratory effort; no respiratory distress Auscultation: lungs clear to auscultation bilaterally Cardiovascular Rate/Rhythm: regular rate and regular rhythm Neurologic moves all extremities Psychiatric Orientation: alert and oriented x 3 Testing Laboratory Results 08/01/21 08:25 08/01/21 08:25 PT 10.2 Seconds (9.0-12.0) 07/31/21 17:12 INR 1.0 (0.9-1.1) 07/31/21 17:12 APTT 25.6 Seconds (21.0-31.0) 07/31/21 17:12 Urine Color Yellow 07/31/21 18:15 Urine Appearance Clear (Clear) 07/31/21 18:15 Urine pH 6.5 (4.5-7.5) 07/31/21 18:15 Ur Specific [place] 1.004 (1.000-1.030) 07/31/21 18:15 Urine Protein Negative (Negative) 07/31/21 18:15 Urine Glucose (UA) Negative (Negative) 07/31/21 18:15 Urine Ketones Negative (Negative) 07/31/21 18:15 Urine Nitrite Negative (Negative) 07/31/21 18:15 Ur Leukocyte Esterase Negative (Negative) 07/31/21 18:15
[2021-08-01] MEDS ORDERED: LACTATED RINGER'S 1,000 ML IV SCH (11:45)
[2021-08-01] MEDS ORDERED: ceFAZolin 2000MG 2,000 MG/15 ML SYR IV ONE (12:10)
--- NOTE | 2021-08-01 12:13 | History & Physical Bridge Note ---
Date of Service August 01, 2021 History & Physical Bridge Note I have examined the patient, reviewed the History & Physical and in the interval since the performance of the History & Physical I have noted the following changes of clinical significance: no changes noted
[2021-08-01] MEDS ORDERED: ceFAZolin 2,000 MG/15 ML IV PUSH IV ONE (12:14)
[2021-08-01] MEDS ORDERED: DEXAMETHASONE SOD INJ 4 MG/ML VIAL ONE (12:29)
[2021-08-01] MEDS ORDERED: MIDAZOLAM HCL 1 MG/ML 2ML VIAL ONE (12:29)
[2021-08-01] MEDS ORDERED: GLYCOPYRROLATE 0.2 MG/ML VIAL ONE (12:29)
[2021-08-01] MEDS ORDERED: ONDANSETRON INJ 2 MG/ML 2 ML VIAL ONE (12:29)
[2021-08-01] MEDS ORDERED: PROPOFOL IV EMULSION 10 MG/ML 20 ML VIAL IV ONE (12:29)
[2021-08-01] MEDS ORDERED: LIDOCAINE 2% 2 ML VIAL/AMP(20MG/ML) INFIL ONE (12:29)
[2021-08-01] MEDS ORDERED: NEOSTIGMINE METHYLSULFATE 1 MG/ML 10ML VIAL ONE (12:29)
[2021-08-01] MEDS ORDERED: fentaNYL citrate 100 MCG/2 ML VIAL ONE (12:30)
[2021-08-01] MEDS ORDERED: Ketorolac (*for OR use only*) 30 MG, dexAMETHasone 4 MG, KETAMINE HCL (**OR use only) 1... INFIL SCH (13:00)
[2021-08-01] MEDS ORDERED: ROCURONIUM BROMIDE 10 MG/ML 5 ML VIAL IV ONE (13:47)
--- NOTE | 2021-08-01 14:03 | Operative Report ---
PG Post Operative Report Pre & Post Diagnosis Operation Date: 08/01/21 08:35 Pre-Op Diagnosis: Subcapital fracture of left hip Post-Op Diagnosis: Subcapital fracture of left hip I identified the patient and participated in the time-out.: Yes Procedure Operation Date: 08/01/21 08:35 Actual Procedures p Left Anterior Total Hip Arthroplasty, Uncemented(Left) - Salomon Dela Cruz DO Surgeon Salomon Dela Cruz DO Caser In Salomon Cox PAC Estimated Blood Loss 200 Findings Consistent with Post-Op Diagnosis Specimens Left femoral head Complications none Disposition Disposition: Recovery Room Indications Marshall is a pleasant 65-year-old female who slipped and fell on black ice yesterday. She sustained a nondisplaced subcapital fracture of her left hip. X-ray showed advanced osteoarthritis. After discussions, she elected proceed with a left total hip arthroplasty. Description of Procedure Implants used I used a [employer]immer[employer] total hip arthroplasty system with a size 5 standard Avenir Complete stem, a 50 mm G7 cup with a 25mm screw, an E1 polyethylene liner, a 36 mm ceramic head with a 0 neck. The arrived at the hospital for the above procedure. She was seen in the preoperative holding area and the operative extremity was identified and signed. She was given a spinal anesthetic, a preoperative antibiotic, and TXA. She was then taken back to the operating room and laid on the table in the supine position. She was given basic sedation. The operative leg was secured to a Puristst leg positioner. The hip was then prepped and draped in sterile fashion. A timeout was done and the patient and the operative extremity was properly identified. An anterior approach was used. Dissection was taken down through the fascia and the tensor muscle belly was retracted laterally and the rectus was retracted medially. The circumflex vessels were identified and ligated. The capsule was then incised and tagged for later repair. The femoral neck was then cut and the femoral head was removed. The acetabulum was exposed. Time was spent doing a complete circumferential labral release. Sequential reaming of the acetabulum up to a size 49 reamer was done. Final reamings were done under fluoroscopy to ensure appropriate version. A Biomet 50mm G7 cup was then impacted into place. A single 25 mm screw was placed. The E1 polyethylene liner was then snapped into place. Surrounding soft tissues were then injected with 100 cc of an orthopedic pain control cocktail. The proximal femur was then exposed. Sequential broaching up to a size 5 broach was done. Off that broach a size 36 head with a 0 neck was trialed. The hip was reduced and fluoroscopic images showed anatomic alignment of the implants in acceptable length. The broach was removed. The final size [address] em was then impacted into place. A ceramic 36mm head with a 0 neck was then impacted onto the stem and the hip was reduced. Final fluoroscopic images showed anatomic alignment of the hip. The capsule was then closed with #1 Vicryl suture. A dilute betadyne lavage was then done for 3 minutes. The joint was then irrigated with normal saline solution. The fascia was closed with #1 PDS suture. Skin was closed with 2-0 Vicryl, shawn, and a Silverlon dressing. She was then transferred to a hospital bed and taken to the post anesthesia care unit in stable condition. She tolerated the procedure well. Salomon Cox PA-C, was present for the entire procedure. He was critical for patient positioning, prepping, draping, retraction exposure, wound closure and application of sterile dressing. I attest to the content of the Intraoperative Record and any orders documented therein. Any exceptions are noted below.
[2021-08-01] MEDS ORDERED: ePHEDrine sulfate 50 MG/ML AMP ONE (14:06)
[2021-08-01] MEDS: fentaNYL citrate 100 MCG/2 ML VIAL IV PRN ×2 (14:32→14:37)
--- NOTE | 2021-08-01 14:49 | Anesthesiology Progress Note ---
Date of Service August 01, 2021 Anesthesia Post Procedure Vital Signs Vital Signs: Temp Pulse Pulse Pulse Resp BP BP 08/01/21 14:35 61 16 106/62 08/01/21 14:27 36.8 C 84 16 118/61 08/01/21 11:23 37 C 78 20 116/65 08/01/21 07:20 36.8 C 74 14 111/74 07/31/21 22:00 36.9 C 85 18 118/76 07/31/21 21:27 88 18 113/78 07/31/21 18:00 82 18 120/65 07/31/21 15:49 37.8 C H 108 H 20 168/89 H Pulse Ox 08/01/21 14:35 98 08/01/21 14:27 98 08/01/21 11:23 93 08/01/21 07:20 94 07/31/21 22:00 94 07/31/21 21:27 95 07/31/21 18:00 95 07/31/21 15:49 96 Pain Intensity Left Hip: Pain Intensity: 6 Left Knee: Pain Intensity: 7 Transfer of Care Handoff Completed per policy Notes Mental Status: alert / awake / arousable Patient Amnestic to Procedure: Yes Nausea / Vomiting: adequately controlled Pain: adequately controlled Airway Patency, RR, SpO2: stable & adequate BP & HR: stable & adequate Hydration State: stable & adequate Anesthetic Complications: no major complications apparent
--- NOTE | 2021-08-01 15:02 | Fluoroscopy Report ---
INTRAOPERATIVE RADIOGRAPHS CLINICAL HISTORY: Left hip arthroplasty. Fluoroscopy time: 25 seconds. FINDINGS: 2 spot fluoroscopic views of the left hip from an arthroplasty procedure are compared to ra diographs dated 07/31/2021. The initial image shows surgical absence of the femoral head within the ac etabular cup in place. A single cortical lag screw transfixes the acetabular cup. The second image sh ows a left hip arthroplasty in near anatomic alignment. There is no evidence of acute fracture on the se fluoroscopic views. IMPRESSION: Intraoperative images from a left hip arthroplasty procedures above. Electronically signed by: Song Spear M.D. 08/01/2021 3:01 PM
[2021-08-01] MEDS ORDERED: METOCLOPRAMIDE HCL INJ 5 MG/ML 2 ML VIAL IV PRN (15:08)
[2021-08-01] MEDS ORDERED: bisacodyL 10 MG SUPP PR PRN (15:08)
[2021-08-01] MEDS ORDERED: oxyCODONE HCL IR 5 MG TAB (IMMEDIATE RELEASE) PO PRN (15:08)
[2021-08-01] MEDS ORDERED: NALOXONE HCL 0.4 MG/1 ML VIAL/CARP IV PRN (15:08)
[2021-08-01] MEDS ORDERED: HYDROmorphone INJ 0.5 MG/0.5 ML SYR IV PRN (15:08)
[2021-08-01] MEDS ORDERED: MAGNESIUM HYDROXIDE SUSP 30 ML UDC PO PRN (15:08)
[2021-08-01] MEDS: SODIUM CHLORIDE 0.9% 1000ML 1,000 ML IV SCH ×2 (15:15→23:24)
--- NOTE | 2021-08-01 15:24 | Electrocardiogram Report ---
Test Reason : Blood Pressure : / mmHG Vent. Rate : 083 BPM Atrial Rate : 083 BPM P-R Int : 142 ms QRS Dur : 068 ms QT Int : 372 ms P-R-T Axes : 076 046 053 degrees QTc Int : 437 ms Poor data quality, interpretation may be adversely affected Sinus rhythm with occasional Premature ventricular complexes Nonspecific ST abnormality Abnormal ECG When compared with ECG of 13-NOV-2014 12:00, Premature ventricular complexes are now Present Confirmed by Jose Flores ([id number]) on 08/01/2021 3:23:56 PM Referred By: REFERRED SELF Confirmed By:Jose Flores
--- NOTE | 2021-08-01 16:31 | XRay Report ---
XR hip 1V LT w pelvis HISTORY: 65 years-old Female IN PACU - A/P PELVIS and LATERAL HIP left hip total joint arthroplasty COMPARISON: MRI left hip 07/31/2021 TECHNIQUE: AP view of the pelvis with crosstable lateral view of the left hip FINDINGS: Left hip total joint arthroplasty. Lateral skin shawn are noted with expected postoperative soft ti ssue swelling and deep tissue air. Satisfactory alignment. No unexpected opaque foreign body. Pelvic basin phleboliths. IMPRESSION: Left hip total joint arthroplasty with expected postoperative changes. ACT 112: Negative or not required by law. The above report was generated using voice recognition software. It may contain grammatical, syntax o r spelling errors. Electronically signed by: Dennis Harrison M.D. 08/01/2021 4:30 PM
--- NOTE | 2021-08-01 17:54 | Billing Data ---
Date of Service August 01, 2021 Coding Level of Care Code 41005 Subseq Hosp Care Lvl 3
[2021-08-01] MEDS: KETOROLAC 30 MG/ML VIAL IV SCH ×2 (18:30→23:25)
[2021-08-01] MEDS: ceFAZolin 2000MG 2,000 MG/15 ML SYR IV SCH (20:21)
[2021-08-01] MEDS: SENNA 8.6 MG TAB PO SCH (20:22)
[2021-08-01] MEDS: ASPIRIN 81 MG ECTAB PO SCH (20:22)
[2021-08-01] MEDS: DOCUSATE SODIUM 100 MG CAP PO SCH (20:22)
[2021-08-01] MEDS: ACETAMINOPHEN 500 MG TAB PO SCH (21:52)
[2021-08-02] MEDS: ceFAZolin 2000MG 2,000 MG/15 ML SYR IV SCH (05:02)
[2021-08-02] MEDS: ACETAMINOPHEN 500 MG TAB PO SCH ×3 (05:02→22:54)
[2021-08-02] MEDS: KETOROLAC 30 MG/ML VIAL IV SCH ×3 (05:03→18:09)
--- NOTE | 2021-08-02 07:15 | Orthopedic Progress Note ---
Date of Service August 02, 2021 Assessment & Plan (1) Status post left hip replacement: Overall she is doing fairly well. Is not any much pain in the left hip. She will be seen by physical therapy today for ambulation and range of motion exercises. She is on aspirin 81 mg twice a day for DVT prophylaxis. She will need to be on that for 6 weeks. She is orthopedically stable for discharge when medically ready. Full orthopedic discharge instructions were placed in the discharge summary. She can follow-up with orthopedics in 2 weeks. Bunny Olivares was seen and examined at bedside this morning. Overall she is doing very well. She is not having much pain in the right hip. She has not been up yet with the nursing staff. She has no complaints. Review of Systems All systems reviewed & are unremarkable except as noted in HPI & below. Physical Exam On physical examination of the left hip, the dressing is clean and dry. Her leg lengths are equal. She has active dorsiflexion plantarflexion of her left ankle.. Results & Data Results & Data Laboratory Results . Diagnostic Findings Postoperative x-rays of the left hip show the prosthesis to be in anatomic alignment without any evidence of fracture, desiccation, or loosening. PG Care Time/CCT Total # of Minutes Spent Total Time Spent with Patient: Total time spent is greater than 50% in coordination of care (as documented) at patient's floor/unit and/or counseling patient: Coding Level of Care Code 95136 Post Operative Follow-Up Diagnoses Status post left hip replacement Z96.642
[2021-08-02] MEDS ORDERED: dexAMETHasone 4 MG TAB PO SCH (08:00)
[2021-08-02] MEDS: MULTIVITAMIN TAB PO SCH (09:08)
[2021-08-02] MEDS: ASPIRIN 81 MG ECTAB PO SCH ×2 (09:09→20:09)
[2021-08-02] MEDS: DOCUSATE SODIUM 100 MG CAP PO SCH ×2 (09:09→20:09)
--- NOTE | 2021-08-02 09:49 | Hospitalist Progress Note ---
Date of Service August 02, 2021 Assessment & Plan (1) Subcapital fracture of left hip: Plan: 65-year-old female with new left subcapital femoral neck fracture with impaction in the left hip from a mechanical fall, now status post total hip arthroplasty. - L hip/pelvis x-ray read as no acute fracture on admission - L hip MRI showing an impacted and minimally displaced subcapital fracture of the left proximal femur with corresponding marrow edema - L total hip arthroplasty done on 08/01/21, currently POD 1. Surgery without complications. - Pain management with scheduled Tylenol and toradol, morphine PRN (for severe pain) - PT/OT evals today - vitamin D level technically normal at 30, but ideally would be > 50. Will add PO supplement 1000mcg qam - Recommend DEXA scan as outpatient. Leukocytosis:resolved - WBC 12.6 on admission --> normalized today - CXR and UA normal. No evidence of cellulitis on exam or diarrhea per history - covid 19 negative on admission Diet: Regular DVT ppx: SCDs, ASA 81mg daily, per ortho Code: Full Dispo: Med/surg; PT/OT ordered --> dispo pending evals (may be stable enough to go straight home with outpatient PT vs. additional day in hospital to recover from surgery vs. placement) Admission and Anticipated Discharge Date Admission Date: July 31, 2021 Supervising Physician Co-Signing Physician Notes I personally examined the patient and verified all zamudio points of history and exam, discussed case, and agree with decision making with Dr Hurley feeling good getting around well post op pain controlled vitals noted nad heent nc at mmm breathing unlabored no accessory muscles good effort skin no rashes no pallor or icterus neuro no focal deficits hip fx -post op and doing well -pain controlled -PT/OT -outpt bone [employer] w/u -probably home tomorrow DVT proph - asa bid Subjective no acute events overnight. Doing well, pain well controlled with tylenol + toradol. Review of Systems Constitutional: + problem reported (+ left hip soreness) Physical Exam Constitutional: WD/WN, vitals as above no acute distress Eyes: + anicteric sclerae ENMT: external ear and nose normal, oropharynx normal Neck: trachea midline Respiratory: normal respiratory effort, lungs clear to auscultation Cardiovascular: RRR, no murmur, no edema Heart Sounds: normal S1 and normal S2 Gastrointestinal (Abdomen): normal bowel sounds, soft, nontender, no hepatosplenomegaly Musculoskeletal: Head/Neck/Chest: normocephalic and head atraumatic + left lower extremity is neurovascularly intact Skin: no rashes, warm and dry Neurologic: moves all extremities Psychiatric: A+Ox3, euthymic affect Genitourinary: Cordova catheter in place, draining yellow urine without visible blood clots Results & Data Results & Data ([facility]) Vital Signs (Past 12 Hours) Vital Signs Temp Pulse Resp BP BP Pulse Ox 08/02/21 07:01 36.7 C 84 18 97/60 L 95 08/02/21 02:44 36.8 C 96 H 14 99/63 L 92 08/01/21 22:00 36.8 C 77 16 92/55 L 93 (1) Subcapital fracture of left hip Encounter type: initial encounter Fracture type: closed Qualified Code(s): S72.012A - Unspecified intracapsular fracture of left femur, initial encounter for closed fracture
[2021-08-02] MEDS: CHOLECALCIFEROL 1,000 UNITS 25 MCG TAB PO SCH (11:18)
--- NOTE | 2021-08-02 12:07 | Discharge Summary ---
Date of Service August 03, 2021 Admission HPI Per Admitting Provider Patient is a 65-year-old female with past medical history of bilateral knee replacement who presents today with left hip pain after a mechanical fall this morning. Patient states she slipped on ice around 8 AM and landed on her left hip. She was able to get up and ambulate back into her home where she continued to ambulate with moderate pain, not requiring any pain medications at time. As the day went on, ambulation became more painful and she decided to come to the ED for further evaluation. Patient reporting left hip pain on the lateral aspect with some radiation down her lateral thigh, sometimes the pain is on her anterior thigh with radiation down to the knee, feels slightly spasmodic and throbbing in nature, but not burning or stabbing. No numbness or tingling, sensation intact. She denies any other injuries sustained in the fall, did not hit her head, neck, back, or any other parts of the body. Denies loss of consciousness, confusion, nausea, vomiting, headache. Only home medication is eyedrops and prn mobic for osteoarthritic joint pain, is not on any blood thinners. L hip and pelvis x-ray revealed no evidence of acute fracture. Alignment is anatomic. Degenerative changes seen at the hip joint. No soft tissue abnormalities seen. Hip MRI ordered. CXR performed, no acute chest disease seen. BP elevated at 168/89, heart rate 108, 96% RA, temp is 37.8. Significant for elevated WBC at 12.6, neutrophil count 10, otherwise unremarkable. Coag panel within normal limits. CMP and UA wnl. Orthopedics has been consulted, hospitalist service consulted for admission. Admission Exam Per Admitting Provider General: awake, alert, no apparent distress Head: Normocephalic, atraumatic ENT: PERRL, EOMI, no pharyngeal exudate, mucous membranes moist Chest: Clear to auscultation, on room air, no adventitious breath sounds Cardiac: Regular rate and rhythm, no murmur, no JVD, normal peripheral pulses, good capillary refill Abdominal: NABS x 4 quadrants, soft, nontender to palpation, no rebound, guarding or tenderness Extremities: LLE--> tender to palpation at the lateral hip joint, passive range of motion limited due to pain; pulses intact bilaterally, sensation intact bilaterally, equal; no internal or external rotation of the left hip; no peripheral edema or erythema, calfs nontender to palpation Psych: Normal mood and affect Neuro: AAO x 3, strength intact bilaterally and rated 5/5, no motor deficits, speech is clear, no peripheral sensory deficits Skin: no rash or erythema Principal Diagnosis Left Femur fracture Discharge Exam Constitutional WD/WN, vitals as above no acute distress Eyes + anicteric sclerae ENMT external ear and nose normal, oropharynx normal Neck trachea midline Respiratory normal respiratory effort, lungs clear to auscultation Cardiovascular RRR, no murmur, no edema Heart Sounds: normal S1 and normal S2 Gastrointestinal (Abdomen) normal bowel sounds, soft, nontender, no hepatosplenomegaly Musculoskeletal Head/Neck/Chest: normocephalic and head atraumatic Hip: + joint line tenderness (left hip) Skin no rashes, warm and dry Neurologic moves all extremities Psychiatric A+Ox3, euthymic affect Discharge Data Allergies Allergy/AdvReac Type Severity Reaction Status Date / Time No Known Allergies Allergy Unverified 07/31/21 17:50 Procedures Performed Operation Date: 08/01/21 08:35 Actual Procedures p Left Anterior Total Hip Arthroplasty, Uncemented(Left) - Salomon Dela Cruz, DO Ordered Studies 07/31/21 18:27 MR hip LT wo con Stat 08/01/21 12:00 FL hip LT 1V Routine Hospital Course (1) Subcapital fracture of left hip: 65-year-old female with new left subcapital femoral neck fracture with impaction in the left hip from a mechanical fall, now status post total hip arthroplasty. - L hip/pelvis x-ray read as no acute fracture on admission - L hip MRI showing an impacted and minimally displaced subcapital fracture of the left proximal femur with corresponding marrow edema - L total hip arthroplasty done on 08/01/21, currently POD 1. Surgery without complications. - Pain management with Tylenol and Ibuprofen as needed, script for oxycodone provided by ortho - plan to do PT as outpatient - vitamin D level technically normal at 30, but ideally would be > 50. Will add PO supplement 1000mcg qam - Recommend DEXA scan as outpatient. Leukocytosis: resolved - WBC 12.6 on admission --> normalized by discharge - CXR and UA normal. No evidence of cellulitis on exam or diarrhea per history - covid 19 negative on admission Total Time Total Time Spent Total Time Spent (In Minutes): <30 min Discharge Plan Discharge Items Patient Disposition: Home - Self-Care Reason For Visit: LEFT HIP PAIN Discharge Diagnosis: Femur fracture Activity: Resume your previous activity Non-emergency contact: Primary Care Provider and Surgeon Call non-emergency contact if: your symptoms worsen and your pain is not controlled Follow-up/Referrals: Amada Smith DO [Primary Care Provider] - Salomon Dela Cruz DO [Physician] - Diet: Regular Addtl Attending Provider Instructions: You were hospitalized at [facility] for evaluation of left hip pain that started after you fell on ice. An MRI was obtained which showed a fracture of your femur bone at the base of the hip joint. Orthopedics was consulted and they performed a total left hip replacement. We checked a vitamin D level while you were in the hospital - it retuned borderline low. We recommend you begin to take a daily supplement of vitamin D3 1,000mcg daily. Please continue to take a daily baby aspirin to prevent a blood clot. You may continue to take Tylenol and/or Ibuprofen on an as needed basis for pain control. Please follow up with orthopedics as directed by Dr. Dela Cruz. 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 * If you are using [facility] then Physical Therapy will be provided until they feel you are ready to start Outpatient Physical Therapy. * If you are not using home therapy then Outpatient Physical Therapy should start about 3-5 days from your day of surgery. Therapy will last about 6-10 weeks * You were shown a series of exercises in the hospital. Do these exercises three times each day including the exercises you were shown in physical therapy. * Get up and walk several times each day.~ For the first four weeks, try not to stand or walk for more than one hour at a time. If you do stand or walk for more than one hour, you will not hurt anything, but your leg will likely swell.~~ * As you feel comfortable, you may change from the walker or crutches to a cane and~then to independent walking. Medications: * Narcotic You will likely be sent home from the hospital with a prescription for the narcotic pain medication that worked best throughout your stay. * Aspirin Most patients will be required to take Aspirin 81mg twice a day for 6 weeks after surgery. This is obtained [id number] and a prescription is not necessary. * Other medications may be prescribed for specific circumstances. If you have any questions, please call the office at . * Resume previous home medications unless otherwise instructed TEDs/Elastic Stockings: The white elastic stockings help limit swelling and prevent blood clots from forming in your legs. The more you wear them, the more they work. Wear them for six weeks. Dressing Care: Leave the Silverlon dressing in place for 7 days. After 7 days you may remove the dressing. If the incision is not draining then you may leave the shawn open to air. If there is a little bit of drainage or if the shawn are getting stuck on your clothing then cover the incision with a dry dressing. The shawn will be removed at your 2 week follow-up appointment. Showering: You may shower with the Silverlon dressing in place. Do not let the shower spray hit the dressing directly. Pat the Silverlon dressing dry. If the dressing becomes wet underneath, then simply remove the dressing. Keep the incision dry until you are 7 days out from the day of surgery. After 7 days you may remove the Silverlon dressing and shower with the shawn exposed. Let soapy water run over the shawn and pat them dry. Do not scrub or soak the incision. Things To Watch For: * Drainage from the incision site that occurs more than one week after your surgery. * Increased redness at the incision site. * Fever above 102 degrees Fahrenheit. * Unusual chest pain or shortness of breath. * Call [facility] at with any of the above problems Follow-Up Visit: Follow-up with Dr. Dela Cruz's PA (Salomon Cox) 2-3 weeks after your day of surgery. He will remove your shawn and answer any questions. If you have any additional questions or concerns, Dr Dela Cruz is usually in the office at the same time and will be available Please call to make an appointment for a time that works for you Pending Studies at Discharge: No Stand-Alone Forms: [facility], Smoking Cessation Medications and DC Order Prescriptions: New aspirin 81 mg Tablet,Delayed Release (Dr/Ec) 81 mg PO BID 30 Days Qty: 60 RF: 0 (CHASITY) ranjana Velazquez See Rx Instructions .Route Qty: 1 RF: 0 Continued Restasis MultiDose 0.05 % drops 1 drops OPB Q12H RF: 0 meloxicam 15 mg tablet 15 mg PO DAILY PRN (Reason: Muscle Spasm) RF: 0 Discharge Orders: Discharge Order (Routine); Ordered 08/03/21 Ordered By: Ivanna Hurlye Admission Data Admit Date/Time: 07/31/21 18:25 Attending Provider: Paco Ames Admit Provider: Rudi Lozoya Primary Care Provider: Amada Smith Other Interventions: Discharge Summary Assessment (RN) Last Done: 08/03/21 11:00 Supervising Physician Co-Signing Physician Notes I personally examined the patient and verified all zamudio points of history and exam, discussed case, and agree with decision making with Dr Hurley feeling good getting around well post op pain controlled ready to go home vitals noted nad heent nc at mmm breathing unlabored no accessory muscles good effort skin no rashes no pallor or icterus neuro no focal deficits hip fx -post op and doing well -pain controlled -PT/OT -outpt bone health w/u -stable for home DVT proph - asa bid Resident Activity Tracking Resident Involvement: Resident Care Provided Care Provided: Adult Hospital Medicine
--- NOTE | 2021-08-02 15:46 | Billing Data ---
Date of Service August 02, 2021 Coding Level of Care Code 55380 Subseq Hosp Care Lvl 2
[2021-08-02] MEDS: SENNA 8.6 MG TAB PO SCH (20:09)
[2021-08-03] MEDS: KETOROLAC 30 MG/ML VIAL IV SCH ×3 (00:17→11:07)
[2021-08-03] MEDS: ACETAMINOPHEN 500 MG TAB PO SCH (06:29)
[2021-08-03] MEDS: DOCUSATE SODIUM 100 MG CAP PO SCH (07:59)
[2021-08-03] MEDS: MULTIVITAMIN TAB PO SCH (07:59)
[2021-08-03] MEDS: CHOLECALCIFEROL 1,000 UNITS 25 MCG TAB PO SCH (07:59)
[2021-08-03] MEDS: ASPIRIN 81 MG ECTAB PO SCH (07:59)
--- NOTE | 2021-08-03 13:30 | Billing Data ---
Date of Service August 03, 2021 Coding Level of Care Code D/C DAY MANAGEMENT <30 MINS
--- NOTE | 2021-08-03 13:34 | Billing Data ---
Date of Service August 03, 2021 Coding Level of Care Code D/C DAY MANAGEMENT <30 MINS
== END 2021-08-03 14:40 | disposition home or self-care (01) | DRG 522 ==
LOC: ED 15:46 → SUATTDRO 18:25 → 3N 18:25